=== PATIENT | female | born 1930 | race Caucasian/White ===

== ENCOUNTER 2017-01-09 11:07 | Observation (INO) ==
[2017-01-09] MEDS ORDERED: NITROGLYCERIN TOP ONE (11:25)
[2017-01-09] MEDS ORDERED: MORPHINE IV ONE (11:26)
[2017-01-09] MEDS ORDERED: ZOFRAN IV ONE (11:26)
--- NOTE | 2017-01-09 11:45 | Diag Imaging Result Doc PS360 ---
EXAM: CHEST-1 VIEW HISTORY: chest pain TECHNIQUE: AP portable at 1126 COMMENT: The inspiration is less optimal than on 07/14/2016. Considering the degree of inspiration there is been no significant change. IMPRESSION: Stable chest. Electronically signed by Janes Farfan 01/09/2017 11:43 AM
[2017-01-09 11:50] LABS: MANUAL DIFF NEEDED? NO
--- NOTE | 2017-01-09 11:54 | EKG Report ---
Test Performed on : 01/09/2017 11:05:30 AM Test Reason : Chest Pain Blood Pressure : / mmHG Vent. Rate : 061 BPM Atrial Rate : 061 BPM P-R Int : 152 ms QRS Dur : 086 ms QT Int : 458 ms P-R-T Axes : 093 084 091 degrees QTc Int : 461 ms Undetermined rhythm Cannot rule out Inferior infarct (cited on or before 14-JUL-2016) Abnormal ECG When compared with ECG of 14-JUL-2016 20:04, Current undetermined rhythm precludes rhythm comparison, needs review T wave inversion no longer evident in Inferior leads T wave inversion no longer evident in Lateral leads Unconfirmed Result
[2017-01-09 12:01] LABS: BASO% 0.9 % (0.0-0.8); EOS# 0.05 X1000 (0.0-0.7); EOS% 1.5 % (0.0-10.0); HEMATOCRIT 34.1 % (37.0-47.0); HEMOGLOBIN 11.8 g/dL (12.0-16.0); LYMPH# 1.11 X1000 (1.2-3.4); LYMPH% 32.7 % (20.5-51.1); MCH 31.6 PG (27-31); MCHC 34.6 g/dL (33-37); MCV 91.4 FL (81-99); MONO# 0.29 X1000 (0.11-0.59); MONO% 8.6 % (1.7-9.3); MPV 9.7 FL (7.4-10.4); NEUT% 56.3 % (42.2-75.2); PLT 283 X1000 (130-400); RBC 3.73 XMIL (4.2-5.4)
[2017-01-09 12:09] LABS: INR 2.86; PROTIME 32.1 Seconds (9.2-11.7)
[2017-01-09 12:18] LABS: ALBUMIN 3.9 g/dL (3.5-5.0); MAGNESIUM 1.6 mg/dL (1.5-2.7); POTASSIUM 4.1 mmol/L (3.5-5.1); TOTAL BILIRUBIN 0.49 mg/dL (0.20-1.00); TOTAL PROTEIN 6.5 g/dL (6.3-8.3)
[2017-01-09] MEDS ORDERED: TYLENOL PO ONE (12:59)
--- NOTE | 2017-01-09 13:16 | PROVIDER DOCUMENTATION ---
This chart was entered by Robert Roberts Scribe, acting as scribe for Musa Langley MD. HPI-Chest Pain - General Chief Complaint: Chest Pain Stated Complaint: chest pain Time Seen by Provider: 01/09/17 11:10 Source: patient Allergies/Adverse Reactions: Patient Allergies Allergy/AdvReac Type Severity Reaction Status Date / Time ceftriaxone sodium * Allergy Intermediate SWELLING Verified 01/09/17 11:24 [From Rocephin] Home Medications: Home Medication List Medication Instructions Recorded Confirmed Last Taken Type Ergocalciferol (Vitamin D2) 50,000 unit PO Q7D 03/02/15 01/09/17 01/09/17 History [Vitamin D2] Levothyroxine [Synthroid] 75 microgm PO QAM 03/02/15 01/09/17 01/09/17 History Sertraline [Zoloft] 25 mg PO QAM 03/02/15 01/09/17 01/09/17 History Lidocaine 5% Oint [Xylocaine 5% 1 each TOP TID PRN 07/17/15 01/09/17 01/09/17 History Oint] Pantoprazole [Protonix] 40 mg PO DAILY@0700 09/07/15 01/09/17 01/09/17 History Fluticasone 50 Mcg Nasal [place] 2 spray ABY QAM 10/04/15 01/09/17 01/09/17 History [Flonase] Isosorbide Mononitrate E.r. [Imdur] 30 mg PO QAM 10/04/15 01/09/17 01/09/17 History Nitroglycerin [Nitrostat] 0.4 mg SL PRN PRN 10/04/15 01/09/17 01/09/17 History Ranolazine [Ranexa] 500 mg PO BID 10/04/15 01/09/17 01/09/17 History Dicyclomine HCl [Bentyl] 20 mg PO 4XDAY 12/01/15 01/09/17 01/09/17 History Cyclobenzaprine [Flexeril] 5 mg PO BID PRN #30 tablet 01/27/16 01/09/17 Rx Bifidobacterium Infantis [Align] 4 mg PO DAILY 03/21/16 01/09/17 01/09/17 History Acetaminophen [Tylenol] 1,000 mg PO Q8H #0 tablet 07/24/16 01/09/17 01/09/17 Rx Bisacodyl [Dulcolax] 10 mg GA BID #0 supp 07/24/16 01/09/17 01/09/17 Rx Metformin [Glucophage] 500 mg PO DAILY 01/09/17 01/09/17 01/09/17 History - History of Present Illness-CP Nature of Presenting Problem: patient is a 86 yo F that presents with chest pain(pressure type) with radiation to bilateral jaws. patient's symptoms began about 8am. Patient denies n/v, diaphoresis. reports some shortness of breath. Pain gets worse intermitted. Patient has history of valve replacement( 2 valves). See's Dr.P Turcios. Location: reports: central Chest Pain Radiation: reports: jaw Quality of Pain: reports: pressure Severity in ED: moderate Onset/Duration: abrupt, this morning (0800) Timing: still present, intermittent Context/Activities at Onset: reports: none Modifying Factors: improves with: nothing Associated Symptoms: reports: back pain, shortness of breath. denies: abdominal pain, diaphoresis, dizziness, fever/chills, nausea, vomiting Nitro Today/Relief: 0.4 mg x 3, provided by EMS, mild relief Aspirin Treatment Today: 325 mg x 1, provided by EMS Prior Chest Pain/Cardiac Workup: reports: angina, other (heart valve replacement ) Similar Symptoms Previously?: Yes Recently Seen Here or By Another Healthcare Provider: No Review of Systems - Adult - REVIEW OF SYSTEMS - ADULT Constitutional: denies: chills, fever Eyes: denies: decreased vision, blurred vision, double vision Ears, Nose, Mouth & Throat: denies: ear pain, sinus problem, throat pain Cardiovascular: reports: chest pain. denies: palpitations, syncope Respiratory: reports: shortness of breath. denies: cough, dyspnea on exertion, wheezing Gastrointestinal: reports: no symptoms reported Genitourinary: reports: no symptoms reported Musculoskeletal: reports: back pain. denies: joint pain, neck pain Integumentary: reports: no symptoms reported Neurological: reports: no symptoms reported Psychiatric: reports: no symptoms reported Endocrine: reports: no symptoms reported Hematologic/Lymphatic: reports: no symptoms reported Allergic/Immunologic: reports: no symptoms reported All Other Systems: Reviewed and Negative Past History - Adult - PAST MEDICAL HISTORY-ADULT Review of Records: reports: Old Records Reviewed, Nursing Assessment Review, Medications Reviewed Cardiovascular: reports: CHF, HTN, heart valve problem ([facility] replacement x2), hyperlipidemia Gastrointestinal: reports: GERD, GI bleed Neurological: reports: CVA, TIA Endocrine/Immune: reports: Diabetes (but states she is no longer diabetic since losing weight), thyroid disorder, other (chronic hyponatremia) Other Conditions: reports: cataract/glaucoma - PRIOR SURGERIES/PROCEDURES Surgical/Procedure History: reports: appendectomy, cholecystectomy, hysterectomy , indwelling device (cochlear implant, [facility] heart valve replacement), tonsillectomy, other (cataract) - IMMUNIZATION STATUS Childhood Immunizations: See Nurse Assessment Flu Vaccine: See Nurse Assessment - FAMILY HISTORY Family History: reviewed, not pertinent - SOCIAL HISTORY Smoking: non-smoker Living Situation: family Physical Exam-General - PHYSICAL EXAM-ADULT Initial Vital Signs Reviewed: Yes - CONSTITUTIONAL General Appearance: alert, mild distress - EYES Eyes: PERRL/EOMI, pink conjunctivae - HEAD, EARS, NOSE, MOUTH & THROAT HENMT: normocephalic/atraumatic, moist mucous membranes, normal ENT inspection - NECK Neck: full range of motion, normal inspection - RESPIRATORY Respiratory: chest non-tender, lungs clear, normal breath sounds, no respiratory distress, no accessory muscle use - CARDIOVASCULAR Cardiovascular: no JVD, systolic murmur (07/21), other (mechanical heart valve clicking) - GASTROINTESTINAL (ABDOMEN) Abdominal Exam: normal bowel sounds, non tender, soft - MUSCULOSKELETAL Extremity: normal range of motion, normal inspection, no pedal edema - SKIN Integumentary: normal color, warm/dry - NEUROLOGIC Neurologic: artificial limb fitter II-XII nml as tested, no motor/sensory deficits - PSYCHIATRIC Psych/Mental Status: normal mood/affect, normal thought content, normal thought process, oriented x 3 Progress - PLAN OF CARE/RESULTS Progress/Plan/Lab Results: Vital Signs - 8 hr 01/09/17 11:18 Temperature 98.0 F Pulse Rate 60 Respiratory Rate 19 Blood Pressure 169/73 O2 Sat by Pulse Oximetry 99 Laboratory Results - last 24 hr 01/09/17 01/09/17 01/09/17 11:38 11:38 11:38 WBC 3.39 L RBC 3.73 L Hgb 11.8 L Hct 34.1 L MCV 91.4 MCH 31.6 H MCHC 34.6 RDW Std Deviation 13.1 Plt Count 283 MPV 9.7 Immature Gran % (Auto) 0.0 Neut % (Auto) 56.3 Lymph % (Auto) 32.7 Camp % (Auto) 8.6 Eos % (Auto) 1.5 Baso % (Auto) 0.9 H Immature Gran # (Auto) 0.00 Neut # (Auto) 1.91 Lymph # (Auto) 1.11 L Camp # (Auto) 0.29 Eos # (Auto) 0.05 Baso # (Auto) 0.03 PT INR D-Dimer 0.25 Sodium 133 L Potassium 4.1 Chloride 93 L Carbon Dioxide 27 Anion Gap 13 BUN 11 Creatinine 1.0 H Estimated GFR/1.73 m2 52 BUN/Creatinine Ratio 11 Glucose 165 H Calculated Osmolality 269 Calcium 9.0 Magnesium 1.6 Total Bilirubin 0.49 AST 17 ALT 10 Alkaline Phosphatase 63 Creatine Kinase 26 Troponin T Total Protein 6.5 Albumin 3.9 Globulin 2.6 Albumin/Globulin Ratio 1.5 01/09/17 01/09/17 11:38 11:38 WBC RBC Hgb Hct MCV MCH MCHC RDW Std Deviation Plt Count MPV Immature Gran % (Auto) Neut % (Auto) Lymph % (Auto) Camp % (Auto) Eos % (Auto) Baso % (Auto) Immature Gran # (Auto) Neut # (Auto) Lymph # (Auto) Camp # (Auto) Eos # (Auto) Baso # (Auto) PT 32.1 H INR 2.86 D-Dimer Sodium Potassium Chloride Carbon Dioxide Anion Gap BUN Creatinine Estimated GFR/1.73 m2 BUN/Creatinine Ratio Glucose Calculated Osmolality Calcium Magnesium Total Bilirubin AST ALT Alkaline Phosphatase Creatine Kinase Troponin T < 0.010 Total Protein Albumin Globulin Albumin/Globulin Ratio Orders Category Date Time Status Cardiac Monitoring DIRECTED Care 01/09/17 11:15 Active Oxygen Therapy- ED Nursing DIRECTED Care 01/09/17 11:24 Active Saline Loc NOW Care 01/09/17 11:15 Active CHEST-1 VIEW [RAD] Stat Exams 01/09/17 11:15 Completed CBC WITH ELECTRONIC DIFF [HEME] Stat Lab 01/09/17 11:38 Completed CK PROFILE [SP CHEM] Stat Lab 01/09/17 11:38 Completed COMPREHENSIVE METABOLIC PANEL [CHEM] Stat Lab 01/09/17 11:38 Completed D-DIMER [CHEM] Stat Lab 01/09/17 11:38 Completed MAGNESIUM [CHEM] Stat Lab 01/09/17 11:38 Completed PRO B-NATRIURETIC PEPTIDE Stat Lab 01/09/17 11:38 Received PROTIME WITH INR [COAG] Stat Lab 01/09/17 11:38 Completed TROPONIN T Stat Lab 01/09/17 11:38 Completed Acetaminophen [Tylenol] Med 01/09/17 12:59 Discontinued 500 mg PO NOW ONE Morphine Med 01/09/17 11:26 Discontinued 4 mg IV NOW ONE Nitroglycerin Med 01/09/17 11:25 Discontinued 1 inch TOP NOW ONE Ondansetron [Zofran] Med 01/09/17 11:26 Discontinued 4 mg IV NOW ONE EKG [EKG] Stat Ther 01/09/17 11:15 Draft Result Diagrams: 01/09/17 11:38 01/09/17 11:38 - EKG 1 Time of EKG reading by physician:: 11:07 EKG Read and Signed by:: Musa Langley EKG Interpretation (*Must complete 3 of following elements*): Abnormal Rate: 61 Rhythm: junctional QRS: normal GA Interval: normal ST Wave: non-specific ST changes - XRAY 1 XRAY Study: Chest Impression: Normal XRAY Interpretation: stable chest - CONSULTS/PCP/HOSPITALIST Notification #1 *Consult/PCP/Hospitalist*: Livan Cody ( KEYBOARD OPERATOR with Hospitalist) Time Discussed: 13:06 Reason/Comments: will be admitting MD Consult Disposition: Will see in ED, Admit Departure - Departure Date of Disposition Decision: 01/02/17 Time of Disposition Decision: 13:07 DIAGNOSIS: Chest pain in adult, Acute coronary syndrome Disposition: ADMITTED INPATIENT 09 Certified Medical Emergency: Emergent Condition: Stable Referrals and Follow-Ups: Mandeep Turcios DO [Primary Care Provider] - - Critical Care Note This patient required my direct & personal management of CC.: No This chart was documented by the indicated scribe, (Robert Roberts, [place]) and accurately reflects the services I performed and decisions made by me, Musa Langley MD, as attested by the provider's signature.
[2017-01-09] MEDS ORDERED: NITROGLYCERIN SL PRN (14:04)
[2017-01-09] MEDS ORDERED: ASPIRIN PO ONE (14:14)
--- NOTE | 2017-01-09 15:12 | Diag Imaging Result Doc PS360 ---
ABDOMEN FLAT/UPRIGHT - 01/09/2017 INDICATION: abd tenderness to palpation diffusely TECHNIQUE: Two views COMPARISON: 07/20/2016 FINDINGS: There is significant fecal impaction of the cecum and descending colon. No small bowel obstruction or free air. Stable surgical clips in the right upper quadrant. Stable left hip prosthesis. IMPRESSION: Constipation with significant fecal impaction of the cecum and descending colon. Electronically signed by Axel Ibarra 01/09/2017 3:09 PM
--- NOTE | 2017-01-09 15:25 | HISTORY AND PHYSICAL ---
CHIEF COMPLAINT: Chest pain. HISTORY OF PRESENT ILLNESS: Mrs. Candelaria is an 86-year-old female with multiple medical problems including dementia, mechanical heart valve placement, aortic and mitral valve replacement, diabetes mellitus and multiple others who presents from the [facility] with chest pain. Unfortunately, patient is a poor historian secondary to her dementia and there is nobody at the bedside to help with details of the admission. She reports some time around 8 o'clock this morning she began having some chest pain which radiated into the neck and arms, she is unsure how long it lasted but she states that when she got to the hospital and she was given medication she felt better. She reports chronic shortness of breath but no lower extremity edema or orthopnea. Again, patient is a poor historian and details are difficult to obtain. She does report that it hurts to push on the sternum as well as diffusely in the abdomen but denies any vomiting or abdomen pain at rest. When she got to the hospital an EKG was done which did not show any acute findings. Laboratory data is largely unremarkable, she has some mild anemia and a proBNP of 2613 but her chest x-ray does not show anything acute. As such, she is going to be admitted for observation status for chest pain. PAST MEDICAL HISTORY: 1. Diastolic heart failure. 2. Hypertension. 3. Hyperlipidemia. 4. Chronic UTI. 5. GERD. 6. CVA. 7. Diabetes mellitus. 8. Dementia. 9. Status post mitral and aortic valve replacement. SURGICAL HISTORY: She has had mitral and aortic valve replacement, cataract surgery, tonsillectomy, hip repair, appendectomy. SOCIAL HISTORY: She lives at the [facility]. No history of alcohol, tobacco or drug use. FAMILY HISTORY: Noncontributory. REVIEW OF SYSTEMS: Difficult to obtain but otherwise 14 point review of systems was obtained and found to be negative with the exception of the HPI. HOME MEDICATIONS: Tylenol every 8 hours as needed, Align 4 mg daily, bisacodyl 10 mg p.r. as needed, Flexeril 5 mg b.i.d., Bentyl 20 mg p.o. 4 times a day, vitamin D2 50, 000 units p.o. daily, fluticasone 2 sprays nasally every morning, isosorbide mononitrate 30 mg p.o. a.m., Synthroid 75 mcg p.o. daily, Xylocaine 5% ointment as directed, Glucophage 500 mg p.o. daily , Nitrostat 0.4 mg sublingual as needed, Protonix 40 mg daily, Ranexa 500 mg p.o. b.i.d., Zoloft 25 mg p.o. a.m., Coumadin 7.5 mg and 10 mg as directed. ALLERGIES: To ceftriaxone. PHYSICAL EXAMINATION: VITAL SIGNS: Blood pressure is 155/66, heart rate 62, respiratory rate 18, O2 saturation 97% on room air, temperature is 98 degrees Fahrenheit. GENERAL: Elderly 86-year-old female lying in hospital bed in no acute distress. NEUROLOGIC: The patient is awake, alert but confused. She follows commands without focal deficits. HEENT: Head atraumatic and normocephalic. Her pupils are equal, round and reactive to light. Oral mucosa is moist. Trachea is midline. There is no JVD. CHEST: Clear to auscultation bilaterally. CV: Regular rate and rhythm. Audible clicks from aortic and mitral valve noted. GI: Soft, nondistended. She does have diffuse tenderness to palpation. Bowel sounds are hypoactive. EXTREMITIES: Diminished pulses with trace edema but no cyanosis. DIAGNOSTIC DATA: Chest x-ray does not show anything acute. EKG sinus rhythm without acute ST or T abnormalities. WBC 3.39, hemoglobin 11.8, hematocrit 34.1, platelet count 283,000, INR 2.86. Sodium 133, potassium 4.1, chloride 93, CO2 27, anion gap 13, BUN 11, creatinine 1, glucose 165, calcium 9.0, magnesium 1.6, bilirubin 0.49, AST 17, ALT 10, alkaline phosphatase 63, troponin negative, proBNP 2613, albumin is 3.9. ASSESSMENT/PLAN: 1. Chest pain: Atypical bordering on noncardiac. Given her history we will admit her for observation and consult with Cardiology. Check an echocardiogram and trend her enzymes, will also continue all of her cardiac medications. 2. Abdominal pain: The patient does have some diffuse abdominal pain to palpation. Will check an abdominal ultrasound x-ray and possibly a CT of the abdomen and pelvis. 3. Status post mechanical heart valve x2: Will continue her Coumadin, check daily INRs, cardiology has been consulted for any further management. 4. Hypertension: Chronic and stable, continue home medications. 5. Diastolic heart failure: Patient is euvolemic at this time. Echocardiogram has been ordered and cardiology has been consult. Will continue her home medications. Follow strict I's and Os and daily weights. 6. Dementia: Stable. 7. Diabetes mellitus type 2: Will check hemoglobin A1c. Add pattern sugars and sliding scale insulin and hold her metformin for now. 8. Gastroesophageal reflux disease: Chronic and stable, continue home medications. 9. Deep vein thrombosis prophylaxis is going to be provided with her Coumadin. Further recommendations to follow. Dictated by JOHANN Blankenship for Monica Morales MD cc: JOHANN Blankenship MD The patient was seen and examined by me. I agree with the assessment and plan as dictated. HIWOT
--- NOTE | 2017-01-09 20:25 | CONSULTATION ---
DATE OF CONSULTATION: 01/09/2017 IMPRESSION: 1. Chest pain, predominantly atypical for myocardial ischemia. 2. Valvular heart disease. A. Status post previous aortic valve replacement. Unknown date. B. 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 Patient reportedly had a [address] Kunal valve placed in the mitral position and a [address] Kunal valve placed in the aortic position. Procedure performed in [place], [place]. Postoperative course complicated. Patient had nonunion of the sternum. 1. Hypertension. 2. Dementia. 3. Hypothyroidism. 4. Previous recurrent atypical chest pain. Patient has no history of coronary disease and last stress myocardial perfusion study in June 2015 was negative for ischemia. 5. History of previous gastrointestinal blood loss and associated anemia. RECOMMENDATIONS: 1. Telemetry observation. 2. Serial cardiac enzymes. 3. If no objective evidence of myocardial ischemia, reasonable to suspect noncardiac chest discomfort and treat patient with analgesics. She appears to be somewhat anxious, and this may be contributing to some of her symptomatology. HISTORY: This 86-year-old white female with past history of dementia, valvular heart disease as outlined above, hypertension, hypothyroidism, and sternal nonunion following cardiac surgery was admitted on transfer from assisted living facility because of recurrent chest discomfort. She relates having intermittent chest discomfort since yesterday morning. She has a somewhat difficult time remembering her symptoms due to her dementia. She is very frustrated and appears stressed by the fact that she is having memory problems. She describes chest discomfort vaguely and reports that it is a dull ache that occurs off and on. At 1 point she acknowledges the discomfort was pleuritic, but then refuted this and then later said it was occasionally worse with deep breath. She has had no other symptoms. PAST MEDICAL HISTORY: 1. Valvular heart disease as outlined above. 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 3. Dementia. 4. Hypertension. 5. Hypothyroidism. 6. Tendency for hyponatremia in the past. PAST SURGICAL HISTORY: Cholecystectomy, hysterectomy, appendectomy, cataract surgery, and cochlear implant on the right. ALLERGIES: She has no known allergies. MEDICATIONS PRIOR TO ADMISSION: As listed. SOCIAL HISTORY: She is a . 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 She does not smoke. FAMILY HISTORY: Negative for premature coronary disease. REVIEW OF SYSTEMS: Not reliably obtainable given patient's dementia. PHYSICAL EXAMINATION: General: This is an elderly white female somewhat distraught which she states is related to her frustration with her memory issues. Vital Signs: Blood pressure 156/76, heart rate 60 and regular. HEENT: Extraocular movements intact. Mucous membranes are moist. Neck: Supple without jugular venous distention. There are no carotid bruits. Chest: Clear to auscultation bilaterally. Cardiac: Reveals a regular rate and rhythm with crisp mechanical 1st heart sound, crisp mechanical 2nd heart sound. No gallop could be appreciated. Abdomen: Soft, nontender. Bowel sounds are normal. Extremities: Without edema. Neurologic: Reveals her to be alert and oriented to person and place. She is not oriented to the year. Speech is fluent. She moves all 4 extremities equally well. Skin: Warm and dry. Psychiatric: Reveals her to be somewhat anxious. DIAGNOSTICS: EKG demonstrates sinus rhythm and delayed precordial R-wave progression. Laboratory data includes INR 2.86. Troponin less than 0.01. cc: Brad Townsend MD
[2017-01-09] MEDS: RANEXA PO SCH (20:58)
[2017-01-09] MEDS ORDERED: TYLENOL PO PRN (21:15)
--- NOTE | 2017-01-09 21:33 | ECHO REPORT ---
ORDER DATE: 01/09/2017 INTERPRETING PHYSICIAN: Dr. Boyle REQUESTING PHYSICIAN: Dr. Monica Morales. CLINICAL INDICATIONS: An 86-year-old female with chest pain, valve replacement. M-MODE MEASUREMENTS: Right ventricle: 2.8 cm. Left ventricle end diastole: 3.9 cm. Left ventricle end systole: 2.2 cm. Posterior wall: 1.4 cm. Interventricular septum: 1.4 cm. Left atrium: 3.1 cm. Aortic root: 2.9 cm. SUMMARY OF 2-DIMENSIONAL IMAGING: The left ventricular function is hyperdynamic. Ejection fraction 83%. There is mild to moderate concentric LVH. The right ventricle appears to be normal. The left atrium is probably mildly enlarged. The mitral valve is a prosthetic mechanical valve. The maximum gradient across this valve is 15 mmHg, mean gradient is 4 mmHg, indicating adequate function. Tissue Doppler of septal and lateral mitral annulus averages 5.5 cm per second. The E/A ratio is markedly elevated. The E/E prime ratio is also significantly elevated. It is greater than 20, indicating elevation of left atrial pressure. The pulmonic valve looks normal. Color flow mapping unremarkable. The tricuspid valve shows a mild degree of regurgitation. The inferior vena cava is not dilated. The pulmonary pressure is estimated at 37 mmHg. The aortic valve is also a mechanical valve. The maximum gradient across this valve is 47 mmHg, mean gradient is 29 mmHg. The ratio of LVOT VTI over aortic valve VTI is about 0.4, indicating that there is no obstruction to this valve. The valve is functioning properly. There is no pericardial effusion, masses or thrombus. IMPRESSION: In summary, this study shows: 1. Hyperdynamic left ventricle with mild to moderate degree of concentric LVH. Ejection fraction greater than 80%. 2. Normally functioning prosthetic mechanical aortic valve. Mean gradient is 28 mmHg. 3. Normally functioning prosthetic mechanical mitral valve. Mean gradient is 4 mmHg. 4. Impaired left ventricular relaxation with elevation of left atrial pressure. 5. Mild degree of tricuspid regurgitation with pulmonary systolic pressure of 37 mmHg. 5. There is mild enlargement of the left atrium. Clinical correlation recommended. cc: MD Bimal Roberto CRNP MTDD
[2017-01-10 06:49] LABS: HEMATOCRIT 33.7 % (37.0-47.0); HEMOGLOBIN 11.4 g/dL (12.0-16.0); MCH 31.1 PG (27-31); MCHC 33.8 g/dL (33-37); MCV 92.1 FL (81-99); MPV 9.6 FL (7.4-10.4); RBC 3.66 XMIL (4.2-5.4)
--- NOTE | 2017-01-10 06:52 | EKG Report ---
Test Performed on : 01/10/2017 06:09:04 AM Test Reason : chest pain Blood Pressure : / mmHG Vent. Rate : 055 BPM Atrial Rate : 055 BPM P-R Int : 000 ms QRS Dur : 086 ms QT Int : 472 ms P-R-T Axes : 000 074 109 degrees QTc Int : 451 ms Junctional rhythm. Cannot rule out Inferior infarct (cited on or before 14-JUL-2016) Abnormal ECG When compared with ECG of 09-JAN-2017 11:05, Previous ECG has undetermined rhythm, needs review Confirmed by Cheo CHRISTIANSON, Faustino Lizarraga ([id number]) on 01/11/2017 2:58:59 PM
[2017-01-10] MEDS ORDERED: PROTONIX PO SCH (07:00)
[2017-01-10 07:13] LABS: HEMOGLOBIN A1C 6.9 % (4.8-6.0)
[2017-01-10 08:04] LABS: HDL 37 mg/dL (45-65); LDL 132 mg/dL; TRIGLYCERIDES 302 mg/dL (35-135); VLDL 60 mg/dL
[2017-01-10 08:06] LABS: INR 2.63; PROTIME 29.4 Seconds (9.2-11.7)
[2017-01-10 08:13] LABS: CALCIUM 8.8 mg/dL (8.8-10.2); POTASSIUM 4.6 mmol/L (3.5-5.1)
[2017-01-10] MEDS: RANEXA PO SCH (08:52)
[2017-01-10] MEDS ORDERED: ZOLOFT PO SCH (09:00)
[2017-01-10] MEDS ORDERED: ASPIRIN PO SCH (09:00)
[2017-01-10] MEDS ORDERED: SYNTHROID PO SCH (09:00)
[2017-01-10] MEDS ORDERED: FLONASE NAS SCH (09:00)
[2017-01-10] MEDS ORDERED: IMDUR PO SCH (09:00)
[2017-01-10 11:46] LABS: URINE SOURCE CLEAN CATCH
[2017-01-10 11:52] LABS: URINE MICRO REVIEW NEEDED? YES
[2017-01-10 12:06] LABS: UR EPITHELIAL CELLS <10 /HPF (<10); URINE BACTERIA NEGATIVE /HPF; URINE RBC <10 /HPF (<10); URINE WBC <10 /HPF (<10)
[2017-01-10 12:33] LABS: BILIRUBIN URINE NEGATIVE (NEGATIVE); COLOR YELLOW; GLUCOSE URINE NEGATIVE (NEGATIVE); TURBIDITY URINE CLEAR (CLEAR); URINE CRYSTALS NONE SEEN
[2017-01-10 12:34] LABS: BLOOD URINE NEGATIVE (NEGATIVE); LEUKOCYTES URINE NEGATIVE (NEGATIVE); NITRITE URINE NEGATIVE (NEGATIVE); PROTEIN URINE NEGATIVE (NEGATIVE); UROBILINOGEN URINE NORMAL (NORMAL)
[2017-01-10 12:49] VITALS: BP 150/62
[2017-01-10] MEDS ORDERED: NORVASC PO SCH (21:00)
--- NOTE | 2017-01-13 17:27 | DISCHARGE SUMMARY ---
ADMISSION DATE: 01/09/2017 DISCHARGE DATE: 01/10/2017 FINAL DISCHARGE DIAGNOSES: 1. Atypical chest pain. 2. Valvular heart disease. 3. Aortic valve replacement. 4. Mitral valve replacement. 5. Hypertension. 6. Dementia. 7. Hypothyroidism. 8. Diabetes Mellitus type 2 9. Hypothyroidism 10. Vitamin D deficiency 11. Situational depression CONSULTATIONS REQUESTED DURING THIS HOSPITAL STAY: Cardiology consultation with Dr. Townsend. HOSPITAL COURSE: Ms. Candelaria is an 86-year-old female with a pretty significant cardiac history, who presented to the ER with chest pain. The patient was admitted to the hospitalist service and serial troponins were obtained. Given the patient's cardiac history Cardiology was also consulted. The patient's cardiac enzymes remain negative and her EKG was unremarkable. It was thought that the patient's chest pain was atypical in nature so no further evaluation was warranted. The patient was ultimately cleared for discharge home the following day, on 01/10/2017. DISCHARGE MEDICATIONS: 1. Norvasc 5 mg p.o. twice a day. 2. Vitamin B12 2500 mcg oral daily. 3. Simvastatin 40 mg p.o. at bedtime. 4. Vitamin D2 50,000 units oral every 7 days. 5. Zoloft 25 mg p.o. every morning. 6. Synthroid 75 mcg p.o. every morning. 7. Protonix 40 mg p.o. daily. 8. Ranexa 500 mg p.o. twice a day. 9. Nitrostat 0.4 mg sublingual p.r.n. 10. Flonase 2 sprays intranasal every morning. 11. Imdur 30 mg p.o. every morning. 12. Bentyl 20 mg p.o. 4 times a day. 13. Flexeril 5 mg p.o. twice a day p.r.n. 14. Align 4 mg p.o. daily. 15. Dulcolax 10 mg per rectal twice a day p.r.n. for constipation. 16. Metformin 500 mg p.o. daily. 17. Warfarin 7.5 mg p.o. as directed. 18. Warfarin 10 mg oral as directed. DISCHARGE DIET: Low-sodium 1800 ADA diet. ACTIVITY: As tolerated. FOLLOWUP INSTRUCTIONS: The patient will need to follow up with her primary care physician in 1 week. cc: Monica Morales MD MTDD
== END 2017-01-10 14:17 | disposition home or self-care (01) ==
LOC: EDIPHOLD 11:07 → ED 11:07 → 3N 17:23
PROVIDERS: ATTEND Internal Medicine

== ENCOUNTER 2018-07-28 19:13 | Inpatient (IN) ==
--- NOTE | 2018-07-28 20:41 | Diag Imaging Result Doc PS360 ---
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 There is worsening, diffuse periventricular white matter chronic microvascular disease. Stable area of old encephalomalacia at the posterior right cerebral hemisphere. No intracranial mass or hemorrhage. The skull is intact. The sinuses are clear. Cervical spine: Alignment is anatomic. Stable severe multilevel degenerative disc disease. Stable rather severe diffuse degenerative facet disease. No fracture or subluxation. IMPRESSION: 1. Mild worsening cerebral white matter chronic microvascular disease. No acute injury. 2. Advanced cervical spondylosis. No acute injury to the cervical spine. This exam was performed using automated exposure control, adjustment of mA or kV according to patient size, and/or use of iterative reconstruction technique Electronically signed by Axel Ibarra 07/28/2018 8:39 PM
[2018-07-28 21:11] LABS: BASO# 0.02 X1000 (0.0-0.2); BASO% 0.4 % (0.0-0.8); EOS# 0.01 X1000 (0.0-0.7); EOS% 0.2 % (0.0-10.0); HEMATOCRIT 32.3 % (37.0-47.0); HEMOGLOBIN 10.8 g/dL (12.0-16.0); LYMPH# 1.43 X1000 (1.2-3.4); MCH 33.2 PG (27-31); MCHC 33.4 g/dL (33-37); MCV 99.4 FL (81-99); MONO# 0.61 X1000 (0.11-0.59); MONO% 13.6 % (1.7-9.3); MPV 10.5 FL (7.4-10.4); NEUT% 53.8 % (42.2-75.2); PLT 203 X1000 (130-400); RBC 3.25 XMIL (4.2-5.4); RDW 12.2 % (11.5-14.5); WBC 4.47 X1000 (4.8-10.8)
[2018-07-28 21:18] LABS: INR 2.38; PROTIME 27.7 Seconds (11.0-16.0)
[2018-07-28 21:27] LABS: URINE SOURCE CATH
[2018-07-28] MEDS ORDERED: CATAPRES PO ONE (21:30)
[2018-07-28 21:41] LABS: BILIRUBIN URINE NEGATIVE (NEGATIVE); BLOOD URINE TRACE (NEGATIVE); COLOR YELLOW; GLUCOSE URINE 500 mg/dL (NEGATIVE); KETONE URINE NEGATIVE (NEGATIVE); LEUKOCYTES URINE TRACE (NEGATIVE); NITRITE URINE NEGATIVE (NEGATIVE); PROTEIN URINE TRACE mg/dL (NEGATIVE); SP GRAVITY URINE 1.015; TURBIDITY URINE CLEAR (CLEAR); UR EPITHELIAL CELLS <10 /HPF (<10); URINE BACTERIA NEGATIVE /HPF; URINE RBC <10 /HPF (<10); URINE WBC <10 /HPF (<10); UROBILINOGEN URINE NORMAL (NORMAL)
--- NOTE | 2018-07-28 21:47 | Diag Imaging Result Doc PS360 ---
THORACIC SPINE - 07/28/2018 INDICATION: fall with pain TECHNIQUE: Three views COMPARISON: 06/15/2018 FINDINGS: There is a stable compression fracture at L2 with about 50% loss of height. No new fractures. Alignment is anatomic. No subluxation. Stable moderate multilevel degenerative disc disease. IMPRESSION: No acute disease or change from prior. Electronically signed by Axel Ibarra 07/28/2018 9:45 PM
[2018-07-28 21:49] LABS: CALCIUM 8.8 mg/dL (8.8-10.2); CREATININE 0.9 mg/dL (0.5-0.9); POTASSIUM 4.5 mmol/L (3.5-5.1)
[2018-07-28] MEDS ORDERED: LOPRESSOR PO ONE (22:40)
--- NOTE | 2018-07-28 23:24 | PROVIDER DOCUMENTATION ---
This chart was entered by Evie Quispe Scribe, acting as scribe for Gloria Shaw MD. HPI-General Adult - General Chief Complaint: B/P Problems Stated Complaint: HIGH BLOOD PRESSURE Time Seen by Provider: 07/28/18 19:40 Source: patient Allergies/Adverse Reactions: Patient Allergies Allergy/AdvReac Type Severity Reaction Status Date / Time ceftriaxone sodium * Allergy Intermediate SWELLING Verified 06/15/18 10:25 [From Rocephin] hydrochlorothiazide Allergy Unknown Verified 06/15/18 10:25 Home Medications: Home Medication List Medication Instructions Recorded Confirmed Last Taken Type Ergocalciferol (Vitamin D2) 50,000 unit PO Q7D 03/02/15 06/15/18 06/10/17 09:00 History [Vitamin D2] Levothyroxine [Synthroid] 75 microgm PO QAM 03/02/15 06/15/18 06/11/17 09:00 History Sertraline [Zoloft] 25 mg PO QAM 03/02/15 06/15/18 06/10/17 09:00 History Pantoprazole [Protonix] 40 mg PO DAILY@0700 09/07/15 06/15/18 06/10/17 09:00 History Fluticasone 50 Mcg Nasal [place] 2 spray ABY QAM 10/04/15 06/15/18 06/11/17 09:00 History [Flonase] Isosorbide Mononitrate E.r. [Imdur] 30 mg PO QAM 10/04/15 06/15/18 06/11/17 09: 00 History Nitroglycerin [Nitrostat] 0.4 mg SL PRN PRN 10/04/15 06/15/18 1 Day Ago History ~06/14/18 Ranolazine [Ranexa] 500 mg PO BID 10/04/15 06/15/18 06/10/17 20:00 History Cyclobenzaprine [Flexeril] 5 mg PO BID PRN #30 tablet 01/27/16 06/15/18 Rx Metformin [Glucophage] 500 mg PO BID 01/09/17 06/15/18 06/10/17 19:00 History Bifidobacterium Infantis [Align] 4 mg PO DAILY 06/11/17 06/15/18 06/11/17 09:00 History Calcium Carbonate [Antacid] 200 mg PO TID 06/11/17 06/15/18 Unknown History Cyanocobalamin (Vitamin B-12) 2,500 mcg SL DAILY 06/11/17 06/15/18 06/10/17 09: 00 History [Vitamin B12] Sodium Chloride 500 mg PO DAILY 06/11/17 06/15/18 06/10/17 09:00 History Trimethoprim 100 mg PO HS 06/11/17 06/15/18 06/10/17 20:00 History Acetaminophen [Tylenol] 1,000 mg PO Q8H PRN PRN 08/22/17 06/15/18 Unknown History Simvastatin 40 mg PO HS 08/22/17 06/15/18 Unknown History Metoprolol Succinate E.r. [Toprol 50 mg PO DAILY #30 tablet 08/27/17 06/15/18 Unknown Rx Xl] Warfarin [Coumadin] 5 mg PO MoWeFr@2100 #20 tablet 08/27/17 06/15/18 Unknown Rx Warfarin [Coumadin] 7.5 mg PO SuTuThSa@2100 #20 tablet 08/27/17 06/15/18 Unknown Rx - History of Present Illness -Gen Adult Nature of Presenting Problems: pt is a 87 yr old female presenting with complaint of fall at approx 1645 this afternoon, after she got dizzy, no LOC, fall was witnessed by staff at facility. since fall pt reports HTN, weakness/inability to stand, headache, neck and back pain. pt did strike head. pt A&O. pt also reports recently taken off of blood pressure medications. Takes coumadin. Per Location of Pain/Injury: reports: head, neck, back Pain Radiation: reports: no radiation Quality of Pain: reports: aching Severity: reports: moderate Onset/Duration: reports: this afternoon Timing: reports: still present Context/Activities at Onset: reports: recent trauma history (fall today) Modifying Factors: improves with: palpation (worsens pain) Associated Symptoms: reports: back/neck pain, dizziness, fatigue, headaches, weakness, trouble walking. denies: chest pain, cough, EENT symptoms, fever/ chills, nausea, shortness of breath, syncope Similar Symptoms Previously?: No Recently seen or treated by another doctor?: Yes Review of Systems - Adult - REVIEW OF SYSTEMS - ADULT Constitutional: reports: fatijabari. denies: chills, fever Eyes: denies: blurred vision, double vision Ears, Nose, Mouth & Throat: reports: no symptoms reported Cardiovascular: denies: chest pain, palpitations, syncope Respiratory: denies: cough, shortness of breath, wheezing Gastrointestinal: denies: abdominal pain, nausea, vomiting Genitourinary: reports: no symptoms reported Musculoskeletal: reports: back pain, muscle aches, neck pain. denies: joint pain Integumentary: reports: no symptoms reported Neurological: reports: dizziness/vertigo, headache/migraines. denies: syncope Psychiatric: reports: no symptoms reported Endocrine: reports: no symptoms reported Hematologic/Lymphatic: reports: no symptoms reported Allergic/Immunologic: reports: no symptoms reported All Other Systems: Reviewed and Negative Past History - Adult - PAST MEDICAL HISTORY-ADULT Review of Records: reports: Old Records Reviewed, Nursing Assessment Review, Medications Reviewed, Social history reviewed & non-contributory. Major Childhood Illnesses: reports: denies history Cardiovascular: reports: CAD, CHF, HTN, heart valve problem ([facility] replacement x2 ), hyperlipidemia Respiratory: reports: denies history Gastrointestinal: reports: GERD, GI bleed Obstetrical/Gynecological: reports: denies history Genitourinary: reports: denies history Musculoskeletal: reports: denies history Neurological: reports: CVA, TIA Endocrine/Immune: reports: Diabetes (but states she is no longer diabetic since losing weight), thyroid disorder, other (chronic hyponatremia) Other Conditions: reports: cataract/glaucoma - PRIOR SURGERIES/PROCEDURES Surgical/Procedure History: reports: appendectomy, cholecystectomy, hysterectomy , indwelling device (cochlear implant, [facility] heart valve replacement), tonsillectomy, other (cataract) - IMMUNIZATION STATUS Childhood Immunizations: See Nurse Assessment Flu Vaccine: See Nurse Assessment - FAMILY HISTORY Family History: reviewed, not pertinent - SOCIAL HISTORY Smoking: non-smoker Substance Use: none/never Living Situation: care facility ([facility]) Physical Exam-General - PHYSICAL EXAM-ADULT Initial Vital Signs Reviewed: Yes - CONSTITUTIONAL General Appearance: appears well, alert, no apparent distress - EYES Eyes: PERRL/EOMI - HEAD, EARS, NOSE, MOUTH & THROAT HENMT: normocephalic/atraumatic, moist mucous membranes, normal ENT inspection, pharynx normal - NECK Neck: C-spine tenderness (mid/low c spine tenderness, c-collar placed, no step offs or deformities) - RESPIRATORY Respiratory: chest non-tender, lungs clear, normal breath sounds - CARDIOVASCULAR Cardiovascular: normal peripheral pulses, regular rate, rhythm, no edema - GASTROINTESTINAL (ABDOMEN) Abdominal Exam: normal bowel sounds, non tender, soft - LYMPHATIC Lymphatic: no adenopathy - MUSCULOSKELETAL Back Exam: no CVA tenderness, vertebral tenderness (mid thoracic spine tenderness, just right of midline, no step-offs or deformities) Extremity: normal range of motion, non-tender - SKIN Integumentary: normal color, normal turgor, warm/dry - NEUROLOGIC Neurologic: grossly normal, no motor/sensory deficits. negative: focal weakness , motor weakness - PSYCHIATRIC Psych/Mental Status: normal mood/affect, normal thought content, normal thought process, oriented x 3 Progress - PLAN OF CARE/RESULTS Progress/Plan/Lab Results: Vital Signs - 8 hr 07/28/18 19:18 Temperature 98.0 F Pulse Rate 66 Respiratory Rate 18 Blood Pressure 203/64 O2 Sat by Pulse Oximetry 95 Orders Category Date Time Status EKG [EKG] Stat Ther 07/28/18 19:23 Ordered fall with head, neck, and back pain. Mildly elevated BP will further evaluate for underlying injuries, causes of weakness and dizziness, and for signs of hypertensive urgency and emergency. Result Diagrams: 07/28/18 21:02 07/28/18 21:02 - REASSESSMENT Reassessment #1 Status: improving (feeling well, c-spine cleared clinically able to fully rom neck without pain. Continued mild hypertension but without signs of hypertensive urgency or emergency. Continued weakness with attempted ambulation required full assist by nurses. Will admit for weakness and ambulatory dysfunction. Discussed case with Dr. Gonzalez, hospitalist who will see and admit pt.) - EKG 1 Time of EKG reading by physician:: 19:38 EKG Read and Signed by:: Gloria Shaw EKG Interpretation (*Must complete 3 of following elements*): Abnormal ( possible inferoir infarct-age undetermined) Rate: 67 Rhythm: sinus rhythm with premature suprventricular complexes [employer]: normal QRS: normal [place] Interval: normal ST Wave: normal - XRAY 1 XRAY Study: Thoracic Spine Impression: Normal (IMPRESSION: No acute disease or change from prior.) - CT/MRI 1 CT Study: Cervical Spine, Head Impression: Abnormal (Signed 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 There is worsening, diffuse periventricular white matter chronic microvascular disease. Stable area of old encephalomalacia at the posterior right cerebral hemisphere. No intracranial mass or hemorrhage. The skull is intact. The sinuses are clear. Cervical spine : Alignment is anatomic. Stable severe multilevel degenerative disc disease. Stable rather severe diffuse degenerative facet disease. No fracture or subluxation. IMPRESSION: 1. Mild worsening cerebral white matter chronic microvascular disease. No acute injury. 2. Advanced cervical spondylosis. No acute injury to the cervical spine. This exam was performed using automated exposure control, adjustment of mA or kV according to patient size, and/or use of iterative reconstruction technique Electronically signed by Axel Ibarra 07/28/2018 8:39 PM 07/28/182038 Interpreting Physician: Axel Ibarra MD Dictated Date/Time: 07/28/182033 cc: Gloria Shaw MD; Mandeep Turcios DO) Comparison with other Films: no changes (07/14/16) Departure - Departure Date of Disposition Decision: 07/28/18 Time of Disposition Decision: 23:23 DIAGNOSIS: Weakness, Ambulatory dysfunction Hypertension Qualifiers: Hypertension type: unspecified Qualified Code(s): I10 - Essential (primary) hypertension Disposition: ADMITTED INPATIENT 09 Certified Medical Emergency: Emergent Condition: Good Referrals and Follow-Ups: Mandeep Turcios DO [Primary Care Provider] - - Critical Care Note This patient required my direct & personal management of CC.: No Attestation - Physician/ EULALIO Attestation Patient care was provided by Advanced Practice Provider:: No The physician spent face to face time with patient:: Yes Advanced Practice Provider documentation review:: Supervising physician onsite and consulted in the evaluation and care of this patient. The physician did have a face to face encounter with the patient. This chart was documented by the indicated scribe, (Evie Quispe Scribe) and accurately reflects the services I performed and decisions made by , Gloria Shaw MD, as attested by the provider's signature.
[2018-07-29] MEDS ORDERED: TYLENOL PO ONE (02:42)
[2018-07-29] MEDS ORDERED: COUMADIN PO ONE (04:31)
[2018-07-29 05:47] LABS: INR 2.58; PROTIME 29.5 Seconds (11.0-16.0)
--- NOTE | 2018-07-29 05:48 | Diag Imaging Result Doc PS360 ---
EXAM: SHOULDER-RIGHT HISTORY: Right Shoulder pain/injury TECHNIQUE: Right shoulder two views COMPARISON: None. FINDINGS: No fracture. No dislocation. No separation at the acromioclavicular joint. There is narrowing to the acromioclavicular joint. The humeral head is superiorly placed within the glenoid. IMPRESSION: 1.No acute fracture 2.Long-standing rotator cuff tear with acromioclavicular arthritis Electronically signed by Colten Harris 07/29/2018 5:45 AM
[2018-07-29] MEDS ORDERED: NS 500 ML IV SCH (06:00)
[2018-07-29] MEDS ORDERED: ZOFRAN IV PRN ×2 (06:09→06:29)
[2018-07-29 06:25] LABS: BASO# 0.01 X1000 (0.0-0.2); BASO% 0.3 % (0.0-0.8); EOS# 0.02 X1000 (0.0-0.7); EOS% 0.6 % (0.0-10.0); HEMATOCRIT 27.3 % (37.0-47.0); HEMOGLOBIN 9.1 g/dL (12.0-16.0); LYMPH# 1.05 X1000 (1.2-3.4); LYMPH% 31.5 % (20.5-51.1); MCHC 33.3 g/dL (33-37); MCV 98.9 FL (81-99); MONO# 0.43 X1000 (0.11-0.59); MONO% 12.9 % (1.7-9.3); MPV 10.2 FL (7.4-10.4); NEUT# 1.82 X1000 (1.4-6.5); NEUT% 54.7 % (42.2-75.2); PLT 180 X1000 (130-400); RBC 2.76 XMIL (4.2-5.4); RDW 12.2 % (11.5-14.5); WBC 3.33 X1000 (4.8-10.8)
[2018-07-29 06:26] LABS: AGAP 10; ALB/GLOB RATIO 1.6; ALBUMIN 3.2 g/dL (3.5-5.0); ALKALINE PHOSPHATASE 50 U/L (32-104); BUN 15 mg/dL (8-22); CALCIUM 8.5 mg/dL (8.8-10.2); CHLORIDE 97 mmol/L (98-107); COSMO 265; CREATININE 0.8 mg/dL (0.5-0.9); ESTIMATED GFR > 60; GLUCOSE 166 mg/dL (70-104); GOT 15 U/L (10-30); GPT 9 U/L (10-36); POTASSIUM 4.6 mmol/L (3.5-5.1); SODIUM 130 mmol/L (136-145); TCO2 23 mmol/L (25-35); TOTAL BILIRUBIN 0.32 mg/dL (0.20-1.00); TOTAL PROTEIN 5.2 g/dL (6.3-8.3)
[2018-07-29] MEDS ORDERED: LEVAQUIN 250 MG in NS 50 ML IV SCH (07:00)
--- NOTE | 2018-07-29 08:13 | EKG Report ---
Test Performed on : 07/29/2018 02:08:11 AM Test Reason : Bradycardia Blood Pressure : / mmHG Vent. Rate : 043 BPM Atrial Rate : 042 BPM P-R Int : 000 ms QRS Dur : 086 ms QT Int : 530 ms P-R-T Axes : 000 072 103 degrees QTc Int : 447 ms Junctional bradycardia. Possible Inferior infarct (cited on or before 14-JUL-2016) Abnormal ECG When compared with ECG of 28-JUL-2018 19:38, (Unconfirmed) Junctional rhythm. has replaced Sinus rhythm. Vent. rate has decreased BY 24 BPM Non-specific change in ST segment in Inferior leads Unconfirmed Result
--- NOTE | 2018-07-29 08:14 | EKG Report ---
Test Performed on : 07/28/2018 7:38:24 PM Test Reason : dizziness Blood Pressure : / mmHG Vent. Rate : 067 BPM Atrial Rate : 067 BPM P-R Int : 182 ms QRS Dur : 086 ms QT Int : 412 ms P-R-T Axes : 037 067 064 degrees QTc Int : 435 ms Sinus rhythm. with premature supraventricular complexes. Possible Inferior infarct (cited on or before 14-JUL-2016) Abnormal ECG When compared with ECG of 15-JUN-2018 09:57, (Unconfirmed) premature supraventricular complexes. are now present Unconfirmed Result
--- NOTE | 2018-07-29 09:03 | HISTORY AND PHYSICAL ---
PRIMARY CARE PROVIDER: Dr. Ramirez. GASTROENTEROLOGY TECHNICIAN: Previously Dr. Risa Suazo, though I think at this time she has been seeing Dr. Turcios. CHIEF COMPLAINT: Fall. Weakness. Elevated blood pressure. HISTORY OF PRESENT ILLNESS: Ms. Candelaria is an 87-year-old, female, with a past medical history most notable for history of valvular heart disease status post mechanical mitral and aortic valve replacement on chronic anticoagulation with Coumadin. She also has a history of atrial flutter, hypertension, hyperlipidemia, CVA, diabetes mellitus type 2 and dementia. The patient is a resident at the [facility] in [place]. She states that this afternoon she was walking with her walker and tripped and fell. The patient states as she fell she hit her head and shoulder on the wall. There was no known loss of consciousness. The patient after the fall was noted to be complaining of right-sided hip pain and right shoulder pain. She was weak and was having difficulty ambulating. Also had elevated blood pressure. The patient denied any dizziness, syncope, near syncope, chest pain, shortness of breath or weakness prior to her fall. She reports that her weakness and difficulty with ambulation started after her fall. Other than her right shoulder pain and right hip pain, she denies any other pain at this time. She denies any chest pain, shortness of breath or cough. She denies any abdominal pain, nausea or vomiting. She denies any urinary frequency, though is reporting that she is having dysuria. She also denies any fever, body aches or chills. She denies any numbness, tingling or swelling in extremities. Upon evaluation in the ER the patient was noted to be quite hypertensive upon her initial arrival with heart rate of 66, respirations 18, blood pressure 203/64 and oxygen saturation was 95% on room air. The patient was given clonidine 0.1 and metoprolol 25 mg p.o. for treatment of her blood pressure. This was successful in lower her blood pressure, though unfortunately did lower her heart rate as well. Patient did become bradycardic and has been maintaining a heart from 41 to 46. Though her blood pressure is much lower than it was when she initially arrived, she is still maintaining adequate blood pressures and mean arterial pressures that have been in the 60s and 70s. Upon my initial evaluation, the patient was sleeping though was easily arousable with verbal stimulation. She did wake up. She told me that she was in the hospital, her name. She thought it was August instead of July, though was able to answer simple questions appropriately. She does have a history of dementia, though I am unsure of her baseline mentation. Though after I had initially seen her I did return to check on her when she became bradycardic and the patient did seem more drowsy, though it was very late at night approximately 1:30 a.m. I am unsure if this is because she was just sleepy or maybe related to her heart rate somewhat. Given these new findings she was placed on CIC with telemetry for close monitoring. For evaluation of her fall in the ER, they did perform a CT of head and C-spine without contrast which did show mild worsening of the cerebral white matter, chronic microvascular disease though there was no acute injury. She did have advanced cervical spondylosis though there was no acute injury to the cervical spine. They did perform a thoracic spine x-ray which showed no acute disease or change from prior. Upon my examination she was complaining of shoulder pain and did have decreased range of motion and pain with manipulation. There was no acute fracture though it did show long-standing rotator cuff tear with acromioclavicular arthritis. From what I understand the nurses in the ER did try to do a trial of ambulation with the patient and she could not tolerate this. She did require maximum assistance. At this time, the patient was admitted for further treatment and evaluation of her fall, weakness, hypertension and bradycardia. REVIEW OF SYSTEMS: A 14 point review of systems was conducted with the patient and all were negative except for pertinent positives mentioned above in HPI. PAST MEDICAL HISTORY: 1. Valvular heart disease status post mitral and aortic mechanical valve replacement on chronic anticoagulation with Coumadin. 2. Hypertension. 3. Hyperlipidemia. 4. Chronic urinary tract infection. 5. Gastroesophageal reflux disease. 6. CVA. 7. Diabetes mellitus type 2. 8. Dementia. 9. Thyroid disease. 10.Atrial flutter. 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 12.Chronic hypernatremia. PAST SURGICAL HISTORY: 1. 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 2. Cataract surgery. 3. Tonsillectomy. 4. Hip repair. 5. Appendectomy. 6. Cholecystectomy. 7. Hysterectomy. 8. Cochlear implant placement. SOCIAL HISTORY: The patient is a resident at [facility] in [*]. She does require assistance of a walker with ambulation. She has no known history of tobacco, alcohol or illicit drug use. FAMILY HISTORY: Unable to be obtained at this time due to the patient's mentation. ALLERGIES: Rocephin. Hydrochlorothiazide. HOME MEDICATIONS: 1. Tylenol 1000 mg p.o. q.8 hours p.r.n. pain. 2. Calcium carbonate 200 mg p.o. T.i.d. 3. Colace 100 mg p.o. daily. 4. Vitamin D2 50 units p.o. q.7 days. 5. Imdur 30 mg p.o. q a.m. 6. Synthroid 75 mcg p.o. q a.m. 7. Glucophage 500 mg p.o. b.i.d. 8. Toprol-XL 25 mg p.o. daily. 9. Nitroglycerin 0.4 mg sublingual p.r.n. for chest pain. 10.Zofran 4 mg p.o. q.8 hours for nausea. 11.Ranexa 500 mg p.o. b.i.d. 12.Zoloft 50 mg p.o. q s.m. 13.Simvastatin 40 mg p.o. q at bedtime. 14.Sodium chloride 500 mg p.o. daily. 15.Trimethoprim 100 mg p.o. q at bedtime. 16.Coumadin 5 mg p.o. q at bedtime on Sundays, Mondays, Tuesdays, , Fridays and Saturdays. 17. Coumadin 2.5 mg p.o. on Wednesdays at 2100. DIAGNOSTIC DATA/LABORATORY RESULTS: 1. White blood cell count is 4470, hemoglobin 10.8, hematocrit 32.3, platelet count is 203,000. 2. PT 27.7. INR is 2.38. 3. Sodium 131, potassium 4.5, chloride 97, serum bicarb 28, BUN 15, creatinine 0.9, glucose is 194, calcium 8.8. 4. Troponin less than 0.01. 5. Urinalysis showed sultana protein and glucose, trace blood and trace leukocytes. 6. Initial EKG showed sinus rhythm with premature supraventricular complex at a rate of 67. 7. Repeat EKG showed junctional bradycardia at a rate of 43. 8. Shoulder x-ray showed no acute fracture, though did show long-standing rotator cuff tear with acromioclavicular arthritis. 9. Thoracic spine x-ray showed no acute disease or change from prior. 10.CT head and C-spine without contrast showed mild worsening cerebral white matter, chronic microvascular disease though no acute injury. There was advanced cervical spondylosis but no acute injury to the cervical spine. PHYSICAL EXAMINATION: VITAL SIGNS: Temperature 97.8 degrees Fahrenheit, heart rate 43, respirations 16, blood pressure 108/42. Oxygen saturation is 98% on room air. GENERAL: Ms. Candelaria is a pleasant, elderly, female. She was resting in the inpatient bed. She was in no acute distress. She was sleeping upon my initial arrival, though was easily arousable with verbal stimulation. Once aroused she was alert and oriented to person and place, though not time. HEENT: Head: Normocephalic and atraumatic. Eyes: Pupils are equal, round, and reactive to light. They were 3 mm bilaterally and brisk. ENT: Oral mucosa is moist. Oropharynx is clear. NECK: Supple. Trachea is midline. CARDIOVASCULAR: The patient does have S1, S2 present and does have a murmur noted. She does have a bradycardic rate that is regular. PULMONARY: The patient has symmetrical expansion bilaterally. Lungs sound clear to auscultation in bilateral full cheng. ABDOMEN: Soft, nontender, nondistended. Bowel sounds are present in all four quadrants and normoactive. EXTREMITIES: No cyanosis or clubbing noted. Pulse, motor and sensory are intact in all extremities. Radial pulses and pedal pulses are 2+ bilaterally. INTEGUMENTARY: The patient's skin is pink, warm and dry. NEUROLOGIC: The patient was resting with her eyes closed upon my initial arrival to the room. She was easily arousable with verbal stimulation. Once awakened she was alert and oriented to person and place, though not time. She thought it was August instead of July. She was able to answer simple questions appropriately and follow commands. She is able to move all extremities. She did have some generalized weakness noted, though did have equal muscle strength and hand grasps bilaterally. The patient does have a Cochlear implant and does appear to have somewhat slow speech at times, though her speech is clear and understandable. IMPRESSION AND PLAN: 1. Fall from a standing position. The patient was reporting right-sided head pain as well as right shoulder pain, though there do not appear to be any acute injury at this time. CT head and C-spine as well as x-ray of the thoracic spine and right shoulder are all negative except for acromioclavicular arthritis. 2. Weakness. Patient reports that this weakness was onset after her fall. Since that time the patient is not able to ambulate without maximum assistance from the nurses. This is of uncertain etiology at this time. Though it could be secondary to pain the patient is having in her right shoulder from her fall and it is later at night. The patient is bradycardic at this time but this only occurred after being given a beta el. She had reported weakness prior to this medication being given. At this time, her weakness is of uncertain etiology though for further evaluation we will continue with a series or cardiac enzymes. We will monitor her heart rate and blood pressure closely. We also have placed a Physical Therapy evaluation and we will continue to follow. 3. Hypertension. The patient's blood pressure has improved at this time after being given clonidine and metoprolol. Though given her bradycardia we are holding her metoprolol at this time. We with continue to monitor blood pressure and implement antihypertensive if necessary. 4. Bradycardia. The patient's heart rate was initially in the 60s upon arrival. EKG did show sinus rhythm with premature supraventricular complexes, though after being given clonidine 0.1 mg p.o. and metoprolol 25 mg p.o. in the ER she did become bradycardic with a heart rate ranging from 41-46 at this time. She is reporting some weakness, though other than this she is asymptomatic at this time though her weakness was prior to her bradycardia. This is likely secondary to medications. As mentioned previously, we will place her on continuous cardiac telemetry and do frequent vital signs and we will continue to monitor closely. 5. Urinary tract infection. Place her on Levaquin 250 mg IV x3 doses. A urine culture has been placed. We are awaiting these results. 6. Dementia. We are uncertain what the patient's baseline mentation is, though at this time she is alert and oriented to person and place though not time. We will continue to monitor this. 7. History of valvular disorder status post mitral and aortic mechanical valve replacements. We will continue the patient's Coumadin. Her INRs are therapeutic at this time. The patient did have a recent fall where she stated that she hit her head on the wall, though she did not have any loss of consciousness. CT of head was negative for any acute intracranial abnormalities. Other than right shoulder pain she is not reporting any other pain or injuries. Given her history of mechanical valve replacement, we will go ahead and continue her Coumadin at this time. Though we will closely monitor her neurological status. 8. Deep venous thrombosis prophylaxis. She was provided with the above mentioned anticoagulation with Coumadin. 9. Diabetes mellitus type 2. We have placed the patient with pattern finger-stick blood sugars and a sliding-scale Lispro insulin per low-dose protocol. DISPOSITION: The patient is placed on CICU with telemetry. We will do strict intake and output, frequent blood pressure and neuro checks. She will be on a diabetic and Heart Healthy diet. We will repeat a CBC, CMP, magnesium and INR in the morning as well as a series of cardiac enzymes. Further orders and recommendations pending hospital course, diagnostic studies, and physician evaluation. Dictated by JOHANN Hernandez for Guzman Gonzalez MD cc: MD Dr. James Montes De Oca MD
[2018-07-29] MEDS: HUMALOG SUBQ SCH ×5 (09:24→23:04)
[2018-07-29] MEDS: COLACE PO SCH (09:24)
[2018-07-29] MEDS: TUMS PO SCH ×3 (09:24→16:34)
[2018-07-29] MEDS: SYNTHROID PO SCH (09:30)
[2018-07-29] MEDS: TYLENOL PO PRN ×3 (11:25→23:01)
--- NOTE | 2018-07-29 14:29 | PROGRESS NOTE ---
DATE: 07/29/2018 BRIEF PROGRESS NOTE: Patient remains bradycardic. Initially presented to the hospital after a trip and fall. No injury was identified. However, she had markedly elevated blood pressure with systolic up to approximately 220. She was given clonidine and metoprolol with improvement in blood pressure, but subsequently developed significant bradycardia. Relatively stable now, but continues to have bradycardia. I suspect this is medication related. Will monitor on telemetry. If bradycardia continues despite holding medications, then may have to get Cardiology involved.
[2018-07-29] MEDS ORDERED: COUMADIN PO SCH (21:00)
[2018-07-30] MEDS: HUMALOG SUBQ SCH ×4 (06:57→21:54)
[2018-07-30 07:21] LABS: BASO# 0.02 X1000 (0.0-0.2); BASO% 0.7 % (0.0-0.8); EOS# 0.01 X1000 (0.0-0.7); EOS% 0.3 % (0.0-10.0); HEMATOCRIT 30.4 % (37.0-47.0); LYMPH# 0.99 X1000 (1.2-3.4); LYMPH% 34.6 % (20.5-51.1); MCH 32.6 PG (27-31); MCHC 32.9 g/dL (33-37); MONO# 0.32 X1000 (0.11-0.59); MONO% 11.2 % (1.7-9.3); MPV 10.4 FL (7.4-10.4); NEUT# 1.52 X1000 (1.4-6.5); NEUT% 53.2 % (42.2-75.2); PLT 186 X1000 (130-400); RBC 3.07 XMIL (4.2-5.4); RDW 12.1 % (11.5-14.5); WBC 2.86 X1000 (4.8-10.8)
[2018-07-30 07:27] LABS: INR 2.19; PROTIME 25.9 Seconds (11.0-16.0)
[2018-07-30 07:39] LABS: CALCIUM 8.3 mg/dL (8.8-10.2); CREATININE 0.9 mg/dL (0.5-0.9); MAGNESIUM 1.6 mg/dL (1.5-2.7); POTASSIUM 4.4 mmol/L (3.5-5.1)
[2018-07-30] MEDS ORDERED: RANEXA PO SCH (09:00)
[2018-07-30] MEDS ORDERED: IMDUR PO SCH (09:00)
[2018-07-30] MEDS: TUMS PO SCH ×3 (10:29→19:55)
[2018-07-30] MEDS: COLACE PO SCH (10:29)
[2018-07-30] MEDS: SYNTHROID PO SCH (10:29)
[2018-07-30] MEDS: ZOLOFT PO SCH (10:31)
--- NOTE | 2018-07-30 13:17 | PROGRESS NOTE ---
DATE: 07/30/2018 INTERVAL HISTORY: The patient with marked hypertension on admission, given clonidine and bradycardia with improvement in blood pressure. But subsequently with brachycardia, which was initially presumed to be medication-related. Heart rate did appear to be improving this morning. It was thought that patient might be able to go back to her assisted living. However, when she went to physical therapy attempted to stand her up and to walk he, she had a further drop in heart rate down to the 40s and experienced a near syncopal episode. Further workup pending. The patient, prior to this event, was feeling well. Denied fever, chills, dyspnea, chest pain, dizziness. Mental status was normal. REVIEW OF SYSTEMS: Twelve point review of systems negative except as per interval history. LABS: WBC 2.8, hemoglobin 10, hematocrit 30.4, platelets 186,000. INR 2.19. Sodium 130, bicarb 23, BUN 20, creatinine 0.9, glucose 152. Troponins negative x3. CT head and C-spine, shoulder x- ray, thoracic spine x-ray without any acute process. Initial EKG with bradycardia and nonspecific ST changes. Repeat EKG pending. OBJECTIVE: General: No acute distress. Vitals: As above. HEENT: Normocephalic, atraumatic. Moist mucous membranes. Neck: No cervical adenopathy. Cardiovascular: Minimally bradycardic, but regular. No rubs or gallops noted. Mechanical mitral valve click noted. Pulmonary: Clear to auscultation bilaterally. No wheezing, rales, or rhonchi noted. Abdomen: Soft, nontender, and nondistended. Bowel sounds present. Extremities: He has no clubbing or cyanosis. Trace bilateral lower extremity edema, stable. Neurologic: Cranial nerves 2-12 grossly intact. No ataxia. Left arm slightly weak, which is a chronic issue. No new focal deficits noted. Psychiatric: Awake, alert, oriented x3. Normal mood and affect. Skin: No rashes or lesions noted. ASSESSMENT AND PLAN: 1. Fall. The patient did not believe she had a syncopal episode on return initial fall. Stated that she thought she tripped over something. Initial workup in the emergency department with no injury. 2. Near syncope. Patient with bradycardia overnight as above, which appears to be resolving, but it appeared to increase during physical therapy, during which she had a near syncopal episodes. We will continue with holding the beta-el. Will repeat EKG and ask cardiology to evaluate. Echo approximately 1 month ago was essentially unremarkable, so will defer repeating echocardiogram to Cardiology. Troponins overnight were negative x3. Monitor closely on telemetry. We will give gentle fluids. 3. Hypertension, markedly elevated on admission with systolic approximately 210. Improved after clonidine, metoprolol in the ED, but had subsequent bradycardia. Had began trending up this morning prior to admission of morning medications, but does appear to have reasonable control currently on Imdur. Holding home metoprolol currently given bradycardia. 4. Mechanical mitral valve. Patient on warfarin at home. Initial INR therapeutic, but slightly low this morning. We will give a dose of Lovenox to cover and increase dose of Coumadin slightly. 5. Diabetes, reasonable control so far on current sliding scale insulin. Continue to monitor glucoses. 6. Dementia, baseline appears to be pretty good. Suspect dementia is quite mild. Continue to monitor mental status. 7. Possible urinary tract infection. Some concern for urinary tract infection on admission, but urine culture no growth. No need for antibiotics at this time. 8. Gastroesophageal reflux disease. Continue proton-pump inhibitor. 9. Hyperlipidemia. Will restart statin. 10. Hypothyroidism. Continue home Synthroid. 11. Deep venous thrombosis prophylaxis: Coumadin/Lovenox.
--- NOTE | 2018-07-30 13:27 | EKG Report ---
Test Performed on : 07/30/2018 1:23:07 PM Test Reason : near syncope Blood Pressure : / mmHG Vent. Rate : 065 BPM Atrial Rate : 065 BPM P-R Int : 160 ms QRS Dur : 086 ms QT Int : 432 ms P-R-T Axes : 057 069 075 degrees QTc Int : 449 ms Sinus rhythm. with premature supraventricular complexes. Otherwise normal ECG When compared with ECG of 29-JUL-2018 02:08, (Unconfirmed) Sinus rhythm. has replaced Junctional rhythm. Vent. rate has increased BY 22 BPM Confirmed by Marcos CHRISTIANSON, Damian Zapata ([id number]) on 07/30/2018 5:29:51 PM
--- NOTE | 2018-07-30 16:03 | CARDIOLOGY CONSULTATION ---
DATE: 07/30/2018 CHIEF COMPLAINT: Syncope. HISTORY: Mrs. Candelaria is an 87-year-old female who lives in assisted living. The patient was in her usual state of health until yesterday when she was standing up with her walker and then she suffered a fall. She is unsure as to whether or not she may have passed out, however in the hospital today, after she was assisted by Physical Therapy to get up and walk, she had three separate episodes of losing consciousness, having orthostatic syncope, and her pulse dropping into the 40s. This happened just for a very brief moment. The patient has no recollection of having chest pain or dyspnea. No edema. She was evaluated by the admitting night team and they did an EKG that showed bradycardia, question of junctional bradycardia. They have done a total of four sets of troponins beginning at 9:00 p.m. on 07/28/2018 and ending last night at 9:00 p.m. All of those troponins are negative. Her electrolytes - sodium was 131 and then dropped to 130, magnesium is 1.5 and 1.6. Albumin is low at 3.2. They did a number of x-rays because she fell and bumped her shoulder and her right hip. The x-ray of the shoulder shows no acute fracture and a long-standing rotator cuff tear with acromioclavicular arthritis. Head CT shows mild worsening cerebral white matter chronic microvascular disease; no acute injury; advanced cervical spondylosis, not acute injury of the cervical spine. Thoracic spine x-ray shows no acute disease or change from prior. There is a stable, compression fracture of L2 with about 50% loss of height. 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 She also had aortic stenosis diagnosed in 2012. At that time, they did a heart cath that showed only 30% circumflex plaque, normal right coronary artery, and normal left main and LAD with normal ejection fraction. This is August of 2016 in [facility]. 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 She moved to the [facility] in 2014. Dr. Josue Turcios has been seeing her frequently. Last visit was 03/26/2018. She has stable atrial fibrillation, stable "congestive heart failure." She has had hyponatremia in the past. She has had acid reflux. She has had question of stroke and she definitely has dementia. Her recollection of events is very limited. She has diabetes mellitus, type 2. SURGICAL HISTORY: In addition to the aortic and mitral valve replacements, she has had cataract extraction, cochlear implant, hysterectomy, and cholecystectomy. SOCIAL HISTORY: She is retired. 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 She is a . She is living in assisted living. She has a son. FAMILY HISTORY: Noncontributory. ALLERGIES: Hydrochlorothiazide and ceftriaxone. HOME MEDICATIONS: At the time of this admission included, Acetaminophen 1000 as needed, calcium carbonate 200 three times a day, Docusate 100 mg daily, warfarin 5 mg once a week and 2.5 other days, trimethoprim 100 at bedtime, simvastatin 40 mg at bedtime, Zoloft 50 mg daily, Ranexa 500 twice a day, metoprolol 25 mg daily, metformin 500 twice a day, levothyroxine 75 mcg daily, Isosorbide mononitrate 30 mg daily, vitamin D2 50,000 units every seven days. REVIEW OF SYSTEMS: Really is noncontributory. Multiple systems were checked. She denied having any major positives anywhere. PHYSICAL EXAMINATION: Vital signs: Blood pressure 173/52, temperature 97.3, pulse 69, respirations 16. General: She is awake, alert, in no distress. HEENT: Unremarkable. Chest: Diminished breath sounds at the bases without rales. Cardiac: Heart sounds are regular, rhythmic. She does have clicking sounds of closing valves, systolic closing for the mitral and diastolic closing for the aortic with a soft systolic murmur 1-2/6 over the aortic area. No gallop noted. Abdomen: Nontender. Extremities: Showed no edema. Neurological: Follows commands, moves four extremities. BLOOD WORK: Pro time is 25.9. INR is 2.19. Hemoglobin is 10 grams, white cell count 2,860, hematocrit 30.4%. BUN is 30, creatinine 0.9. IMPRESSION: 1. Patient who has had apparently orthostatic syncope. 2. History of aortic and mitral valve replacement with mechanical valves, not on anticoagulation. 3. Dementia. 4. History of diabetes mellitus and hypertension. 5. Question of symptomatic bradycardia. RECOMMENDATIONS: At this point in time, the patient is not bradycardic anymore. I would suggest to avoid metoprolol, Ranexa, and Imdur in this patient. Those medications may not be appropriate for her. I would suggest to use hydralazine to optimize her blood pressure and consider using amlodipine prison for management of hypertension. We will observe her course in the hospital. I would like to do a resting gated myocardial perfusion study to document no changes in the perfusion of the myocardium because of the potentially inappropriate use of nitrates and ranolazine on her since she does not really have history of obstructive coronary artery disease. Will follow her along and upon discharge she needs to be referred back to Dr. Josue Turcios, who is her regular recycling crew supervisor. cc: Renato Boyle MD
[2018-07-30] MEDS: APRESOLINE PO SCH ×2 (16:35→19:55)
[2018-07-30] MEDS: LOVENOX SUBQ SCH (16:35)
[2018-07-30] MEDS: NS 1,000 ML IV SCH (16:36)
[2018-07-30] MEDS: TYLENOL PO PRN (16:45)
[2018-07-30] MEDS ORDERED: COUMADIN PO SCH (21:00)
--- NOTE | 2018-07-30 21:51 | Diag Imaging Result Document ---
PROCEDURE NAME: MYOCARDIAL PERFU SCAN, REST - 07/30/2018 SUMMARY: The patient was administered 25.9 mCi of technetium-99m sestamibi, after which resting cardiac images were obtained. SPECT images were reconstructed in the short, horizontal long, and vertical long axes. Review of these images demonstrated a small area of mild thinning in the inferoapical region. No perfusion defects are demonstrated. Gated images demonstrate a calculated left ventricular ejection fraction of 84%, with symmetrical wall motion/thickening. CONCLUSIONS: Resting sestamibi images demonstrate no perfusion defects, and a calculated left ventricular ejection fraction of 84%, with symmetrical wall motion. cc: MD Suzy Nowak PA
[2018-07-30] MEDS: ZOCOR PO SCH (21:54)
[2018-07-31] MEDS: TYLENOL PO PRN (00:49)
[2018-07-31] MEDS ORDERED: LOVENOX SUBQ SCH (06:00)
[2018-07-31] MEDS: NS 1,000 ML IV SCH ×2 (06:16)
[2018-07-31] MEDS: HUMALOG SUBQ SCH ×4 (06:17→22:38)
[2018-07-31] MEDS: LOVENOX SUBQ SCH (06:17)
--- NOTE | 2018-07-31 07:26 | EKG Report ---
Test Performed on : 07/31/2018 07:07:38 AM Test Reason : bradycardia Blood Pressure : / mmHG Vent. Rate : 076 BPM Atrial Rate : 076 BPM P-R Int : 164 ms QRS Dur : 088 ms QT Int : 400 ms P-R-T Axes : -18 064 039 degrees QTc Int : 450 ms Normal sinus rhythm. Possible Inferior infarct , age undetermined Abnormal ECG When compared with ECG of 31-JUL-2018 07:06, (Unconfirmed) No significant change was found Confirmed by Marcos CHRISTIANSON, Damian Zapata ([id number]) on 08/03/2018 7:16:43 AM
[2018-07-31 07:27] LABS: INR 2.27; PROTIME 26.7 Seconds (11.0-16.0)
--- NOTE | 2018-07-31 08:43 | CARDIOLOGY PROGRESS NOTE ---
DATE: 07/31/2018 CHIEF COMPLAINT: Orthostatic syncope, bradycardia. SUBJECTIVE: Mrs. Candelaria is not having any more issues with passing out. She did pass out when standing up yesterday by the physical therapist. At that time, they documented a drop in blood pressure and also a low heart rate. We had discontinued isosorbide dinitrate and Ranexa and her heart rate since then has gone up. Highest heart rate recorded last night 93 beats per minute at 4 a.m. in the morning. This morning, she feels fine. OBJECTIVE: Vital signs: Blood pressure is 164/58, pulse rate 67, temperature is 98 degrees. General: She is awake, alert, in no distress. HEENT: Unremarkable. Chest: Clear to auscultation and percussion. Cardiac: Heart sounds regular and rhythmic. She has normal closing click of her valves. She does have a systolic murmur, 2/6 in intensity. Abdomen: Nontender. Extremities: Show no edema. Neurological: Follows commands, moves four extremities. BLOOD WORK: PT INR today is therapeutic at 2.27. IMPRESSION: 1. Patient who had orthostatic syncope. 2. 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 3. History of hypertension. 4. History of minimal coronary artery disease. RECOMMENDATION: At this point in time, the patient does not seem to be bradycardic anymore and her hypertension is better controlled. I would suggest to use a combination of hydralazine and possibly amlodipine to deal with her hypertension. Perhaps, a tiny dose of beta-el may not be a bad idea. However, I would certainly not resume Ranexa and Imdur, since those medications, given her lack of severe coronary heart disease, would be totally inappropriate, and Imdur for sure can cause orthostatic syncope. At this point in time, I will sign off, and the Primary Service may discharge the patient at their earliest convenience. cc: Renato Boyle MD
[2018-07-31] MEDS: COLACE PO SCH (10:09)
[2018-07-31] MEDS: APRESOLINE PO SCH ×3 (10:09→17:02)
[2018-07-31] MEDS: TUMS PO SCH ×3 (10:09→17:02)
[2018-07-31] MEDS: ZOLOFT PO SCH (10:09)
[2018-07-31] MEDS: SYNTHROID PO SCH (10:09)
[2018-07-31] MEDS: NORVASC PO SCH (11:14)
--- NOTE | 2018-07-31 18:57 | Diag Imaging Result Doc PS360 ---
CHEST-PORTABLE - 07/31/2018 INDICATION: Bed placement COMPARISON: 06/15/2018 FINDINGS: Stable sternotomy wires and valve replacement. Heart size and pulmonary vascularity remain normal. No infiltrates or edema. No pneumothorax or pleural effusion. IMPRESSION: No acute disease. Electronically signed by Axel Ibarra 07/31/2018 6:55 PM
[2018-07-31] MEDS ORDERED: COUMADIN PO SCH ×2 (21:00)
[2018-07-31] MEDS: ZOCOR PO SCH (22:37)
--- NOTE | 2018-08-01 03:40 | PROGRESS NOTE ---
DATE: 07/31/2018 INTERVAL HISTORY: Patient with near-syncope with physical therapy yesterday. Evaluated by cardiology. They performed a stress test which was unremarkable. Favored medication side effect and medications adjusted. Heart rate improved today. The patient has been able to stand up with nursing assistance without orthostatic syncope this morning. She still desires strongly to go back to her assisted living on discharge. No new complaints. No other acute events overnight. REVIEW OF SYSTEMS: A 12-point review of systems was negative except as per interval history. LABS: INR 2.2. Glucose 163. VITAL SIGNS: T-max 98.4 degrees, pulse 74, blood pressure 149/54, O2 saturation 95% on room air. IMAGING: Cardiac stress test with no perfusion defects. EF calculated at 84%. PHYSICAL EXAMINATION: General: No acute distress. Vitals: As above. HEENT: Normocephalic, atraumatic. Moist mucous membranes. Neck: No JVD. No cervical adenopathy. Cardiovascular: Regular rate and rhythm. No rubs or gallops. Mechanical valve click noted. Pulmonary: Clear to auscultation bilaterally. No wheezing, rales, or rhonchi noted. Abdomen: Soft, nontender, nondistended. Bowel sounds positive. Extremities: No clubbing or cyanosis. Peripheral pulses intact. Trace bilateral lower extremity edema, unchanged. Neurologic: Cranial nerves 2-12 grossly intact. No new focal deficits. Left arm remains likely slightly weak, which is chronic. Psychiatric: Awake, alert, oriented x3. Normal mood and affect. Skin: No new rashes or lesions noted. ASSESSMENT/PLAN: 1. Fall. Patient believes she just tripped. No injuries identified on workup in the emergency department. 2. Near syncope. Patient with bradycardia after admission secondary to clonidine and Lopressor administration, although some of her home medications may have been contributing as well. She had a near syncopal event with physical therapy yesterday but this has not reoccurred since discontinuation of her Imdur and Ranexa. Cardiology was consulted and performed myocardial perfusion imaging, which was unremarkable. Medications adjusted. We will leave her off of her beta el and I have also discontinued Ranexa and Imdur. Did well with physical therapy today with no further orthostatic hypotension or near-syncope. Troponin is negative. Echocardiogram 1 month ago essentially unremarkable. Awaiting assessment by her assisted living for discharge. 3. Hypertension, markedly elevated on admission but improved with clonidine and metoprolol. Had subsequent bradycardia as above. Trending up somewhat this morning so Norvasc was added. Given her intolerance of Imdur, clonidine, and metoprolol, may have to exercise caution if additional agents are necessary. 4. Mechanical mitral and aortic valves. Patient on warfarin at home. Initially, an INR was barely therapeutic but trended down some afterwards. Warfarin increased somewhat. INR trending up, remains slightly subtherapeutic as her goal is 2.5 to 3.5. We will further increase her Coumadin and monitor. She received a dose of Lovenox this morning to cover her until her INR is therapeutic. 5. Diabetes. Reasonable control so far on current sliding scale insulin. Continue to monitor glucoses. 6. Dementia. Baseline appears quite good. Suspect either mild dementia or more likely MCI. 7. Possible urinary tract infection. Some concern for urinary tract infection on admission but urine culture showed no growth off antibiotics with no ill affects. 8. Gastroesophageal reflux disease. Continue proton pump inhibitor. 9. Hyperlipidemia. Continue statin. 10. Hypothyroidism. Continue home Synthroid. 11. Deep vein thrombosis prophylaxis. Coumadin/Lovenox. 12. Disposition. Anticipate discharge back to assisted living facility once they have evaluated the patient.
[2018-08-01] MEDS: HUMALOG SUBQ SCH (06:52)
[2018-08-01] MEDS: NORVASC PO SCH (10:15)
[2018-08-01] MEDS: SYNTHROID PO SCH (10:15)
[2018-08-01] MEDS: APRESOLINE PO SCH (10:15)
[2018-08-01] MEDS: TUMS PO SCH (10:15)
[2018-08-01] MEDS: COLACE PO SCH (10:16)
[2018-08-01] MEDS: ZOLOFT PO SCH (10:18)
[2018-08-01 12:51] VITALS: BP 133/43
[2018-08-01 14:41] LABS: INR 2.14; PROTIME 25.5 Seconds (11.0-16.0)
--- NOTE | 2018-08-02 04:47 | DISCHARGE SUMMARY ---
ADMISSION DATE: 07/29/2018 DISCHARGE DATE: 08/01/2018 DISCHARGE DIAGNOSES: 1. Ground level fall. 2. Near syncope. 3. Accelerated hypertension. 4. Mechanical mitral and aortic valves. 5. Diabetes. 6. Dementia. 7. Gastroesophageal reflux disease. 8. Dyslipidemia. CONSULTATIONS: Cardiology. PROCEDURES: Myocardial perfusion resting scan. HOSPITAL COURSE: Briefly, this is an 87-year-old female who presented with fall , weakness, elevated blood pressure. She was admitted. She had weakness, some bradycardia , possible urinary tract infection. The patient was monitored. She had bradycardia with hypertension, concern over possible [place] syndrome, but there was no evidence of central nervous system lesion. Blood pressure medications were adjusted. She had a resting scan which showed no perfusion defects and an EF of 84%. Cardiology was consulted and recommended no metoprolol, Imdur and hydralazine, and she was monitored and would be low-dose metoprolol. Plans were made to discharge her on 07/31/2018, but she could not be evaluated by her assisted living until 2018 so she was held on that. Her INR which was done at discharge was 2.14, so she is still somewhat subtherapeutic. She will need a repeat INR in a couple days just to make sure that her INR is increasing, definitely no later than Sunday. DISCHARGE MEDICATIONS: 1. Tylenol. 2. Antacid. 3. Colace 100 daily. 4. Vitamin D2. 5. Synthroid 75 daily. 6. Metformin 500 b.i.d. 7. Zofran. 8. Zoloft 50 daily. 9. Sodium chloride 50 daily. 10. Trimethoprim 100 at bedtime. 11. Lipitor 40 daily which is new. 12. Warfarin 7.5 at bedtime. 13. Norvasc 10 daily. 14. Hydralazine 25 t.i.d. DISCHARGE RECOMMENDATIONS: Recommend follow up with her PCP, Madelyn Ramirez MD and Dr. Turcios is her primary hospice plan administrator, but she will need a PT/INR in about 48-72 hours to adjust her Coumadin. cc: Wai Whiting MD [facility]
== END 2018-08-01 17:42 | DRG 312 ==
LOC: ED 19:13 → EDIPHOLD 07-29 03:08 → SUATTDRO 07-29 03:08 → 3N 07-29 21:28
PROVIDERS: ATTEND Internal Medicine
CPT/HCPCS: 70450; 71010; 71045; 72072; 72125; 73030; 78451; 80048; 80053; 81001; 82550; 82948; 83735; 84484; 85025; 85610; 87088; 93005; 93010; 94762; 96361; 96365; 97116; 97162; 97530; 99285; A9270; A9500; J1650; J1815; J1956; J7030; J7040; XXXXX